=== PATIENT | male | born 1965 | race African-American/Black ===

== ENCOUNTER 2023-08-11 10:33 | Inpatient (IN) | payer OTHER ==
[2023-08-11 11:01] VITALS: BMI 24.3
[2023-08-11] MEDS ORDERED: NALOXONE HCL (KLOXXADO) 8 MG SPRAY NS PRN (11:41)
[2023-08-11] MEDS ORDERED: BENZOCAINE/MENTHOL (CHLORASEPTIC ) LOZENGE MM PRN (11:41)
[2023-08-11] MEDS ORDERED: BENZONATATE 200 MG CAPSULE PO PRN (11:41)
[2023-08-11] MEDS ORDERED: guaiFENesin 600 MG TABLET.ER (FP) PO PRN (11:41)
[2023-08-11] MEDS ORDERED: POLYETHYLENE GLYCOL (HEALTHYLAX) 3350 17 GM PACKET PO PRN (11:41)
[2023-08-11] MEDS ORDERED: LOPERAMIDE HCL 2 MG CAPSULE PO PRN (11:41)
[2023-08-11] MEDS ORDERED: MAG HYDROX/AL HYDROX/SIMETH 30 ML UNIT-DOSE CUP PO PRN (11:41)
[2023-08-11] MEDS ORDERED: NALOXONE HCL 0.4 MG/ML VIAL IM PRN (11:41)
[2023-08-11] MEDS ORDERED: IBUPROFEN 400 MG TABLET (FP) PO PRN (11:41)
[2023-08-11] MEDS ORDERED: hydrOXYzine PAMOATE 25 MG CAPSULE (FP) PO PRN (11:41)
[2023-08-11] MEDS ORDERED: IBUPROFEN 600 MG TABLET (FP) PO PRN (11:41)
[2023-08-11] MEDS ORDERED: ACETAMINOPHEN 325 MG TABLET (FP) PO PRN (11:41)
[2023-08-11] MEDS ORDERED: MAGNESIUM HYDROX 2400MG/30ML ORAL SUSPENSION 30 ML CUP PO PRN (11:41)
[2023-08-11] MEDS: PRENATAL VITAMINS W/ FOLIC ACID TABLET (FP) PO SCH (13:08)
[2023-08-11] MEDS ORDERED: TUBERCULIN PPD 5 TU/0.1ML VIAL ID ONE (16:33)
[2023-08-11] MEDS ORDERED: ASPIRIN 81 MG CHEWABLE TABLETS ONE (17:40)
[2023-08-11] MEDS: ASPIRIN COATED 81 MG TABLET.EC PO SCH (17:43)
[2023-08-11] MEDS: THIAMINE HCL 100 MG TABLET (FP) PO SCH (21:23)
[2023-08-11] MEDS: MELATONIN 5 MG TABLETS PO SCH (21:23)
[2023-08-12 07:58] VITALS: RESP 17
[2023-08-12 13:39] LABS: HEMOGLOBIN 16.4 GM/dL (11.7-16.9); MCH 29.6 pg (25.7-33.7); MCHC 33.6 g/dl (32.0-35.9); MEAN CELL VOLUME 88.2 fl (80-96); MEAN PLT VOLUME 7.5 fl (7.5-11.1); PLATELET COUNT 249 10^3/uL (134-434); RBC 5.55 M/mm3 (4.00-5.60); RDW 13.7 % (11.9-15.9); WHITE BLOOD COUNT 4.8 K/mm3 (4.0-10.0)
[2023-08-12 14:11] LABS: POTASSIUM 4.4 mmol/L (3.5-5.1)
[2023-08-12 14:13] LABS: CALCIUM 9.1 mg/dL (8.5-10.1)
[2023-08-12 14:14] LABS: ALBUMIN 3.5 g/dl (3.4-5.0)
[2023-08-12 14:17] LABS: CREATININE 0.8 mg/dL (0.55-1.3); SYPHILIS W/ RPR CONF NON-REACTIVE (NONREACTIVE)
[2023-08-12 14:18] LABS: BILIRUBIN,TOTAL 0.7 mg/dL (0.2-1)
[2023-08-12 14:19] LABS: TOT PROT 6.5 g/dl (6.4-8.2)
[2023-08-12 22:51] LABS: URINE APPEARANCE CLEAR; URINE BILIRUBIN NEGATIVE (NEGATIVE); URINE COLOR YELLOW; URINE GLUCOSE (UA) NEGATIVE (NEGATIVE); URINE KETONE NEGATIVE (NEGATIVE); URINE LEUK ESTERASE NEGATIVE (NEGATIVE); URINE NITRITE NEGATIVE (NEGATIVE); URINE PROTEIN NEGATIVE (NEGATIVE)
[2023-08-13 06:58] VITALS: BP 143/88; PULSE 91; TEMP 97.8
== END 2023-08-13 13:24 | disposition left against medical advice (07) | DRG 770 ==
LOC: YASAS 10:33 → Y3E 16:08
PROVIDERS: ADMIT Allergy & Immunology; ATTEND Psychiatry & Neurology Pain Medicine
PROC: HZ42ZZZ Group Counseling for Substance Abuse Treatment, Cognitive-Behavioral (ICD-10-PCS; principal; 2023-08-11)
DX: F14.20 Cocaine dependence, uncomplicated (principal); F12.20 Cannabis dependence, uncomplicated; F17.210 Nicotine dependence, cigarettes, uncomplicated; J44.9 Chronic obstructive pulmonary disease, unspecified; M17.12 Unilateral primary osteoarthritis, left knee; Z59.01 Sheltered homelessness
CPT/HCPCS: 36415; 80053; 81003; 85027; 86780; 86803; 87635; 93005; 93010